=== PATIENT | male | born 1965 | race Caucasian/White ===

== ENCOUNTER → 2019-09-03 16:18 | Outpatient (CLI) | payer OTHER, SELFPAY ==
[2019-09-03 18:20] LABS: PSA,Total - Annual Screen 0.67 ng/mL (0.00-4.00)
== END ==
PROVIDERS: Family Provider Family Medicine; PCP Family Medicine; Referring Provider Preventive Medicine Occupational Medicine; Visit Provider Nurse Practitioner Adult Health
DX: Z12.5 Encounter for screening for malignant neoplasm of prostate (principal)
CPT/HCPCS: 36415; 84153; G0103

== ENCOUNTER 2019-11-01 10:13 | Emergency (ER) | payer OTHER, SELFPAY ==
[2019-11-01 10:17] VITALS: BP 178/90; PULSE 72; RESP 16; TEMP 36.5; O2SAT 99; BMI 37.4
--- NOTE | 2019-11-01 10:30 | EKG12_ITS ---
Test Reason : Blood Pressure : / mmHG Vent. Rate : 068 BPM Atrial Rate : 068 BPM P-R Int : 154 ms QRS Dur : 098 ms QT Int : 364 ms P-R-T Axes : 044 -13 067 degrees QTc Int : 387 ms Normal sinus rhythm Normal ECG Confirmed by DERICK SINGH, LORNE ([id number]), senior editor MIMI HAUSER ([id number]) on 11/05/2019 9:01:05 AM Referred By: Jeferson Herrera Confirmed By:LORNE SEPULVEDA MD
--- NOTE | 2019-11-01 10:30 | RAD_ITS ---
STUDY: X-RAY CHEST REASON FOR EXAM: Male, 53 years old. SOB, EDEMA IN LEGS TECHNIQUE: PA and lateral views of the chest. COMPARISON: None. FINDINGS: EKG electrodes are seen. Increased markings in the lingular segment of the left upper lobe. Radiographic follow-up is recommended. There is no demonstrated pleural abnormality. Sternal cerclage wires and vascular clips are present from a prior sternotomy and coronary artery bypass graft procedure (CABG). Normal mediastinum and rolando. Normal visualized pulmonary arteries. Normal visualized aortic arch and descending thoracic aorta. Normal visualized thoracic spine. Normal visualized ribs, clavicles, and shoulders. There is no demonstrated abnormality of the visualized soft tissue structures of the upper abdomen. RAD/Chest PA and Lateral IMPRESSION: Increased markings in the lingular segment of the left upper lobe. This may represent chronic changes following CABG. Follow-up is recommended. Electronically Signed: Miguel Hays, at 11:22 EST , Service support ,
--- NOTE | 2019-11-01 10:30 | ED.VIS.GEN ---
History of Present Illness Chief Complaint: Edema Informant: Patient Onset: Yesterday Current Severity: Moderate Maximum Severity: Moderate Narrative: Patient presents with swelling to the bilateral lower extremities that was noted yesterday. States swelling is slightly improved today but not completely back to baseline. states she is also noticed he seemed more winded with activity over the past 4 to 5 days. Patient does have cardiac history with multiple stents. He denies history of CHF. He denies having chest pain or any symptoms consistent with his coronary disease. Patient also has a 9 mm kidney stone is scheduled to have surgery next week. He was unsure if this may be related to retaining extra fluid. - Past Medical History (1) Coronary artery disease Status: Chronic (2) History of heart artery stent Status: Chronic (3) Kidney stone Status: Chronic Past Medical History - Allergies and Home Meds Allergies/Adverse Reactions: Allergies filgrastim [From Neupogen] Allergy (Verified 11/01/19 10:15) Other elevated heart rate Primary Care Physician: Jeferson Herrera DO [Primary Care Provider] - Doctors: Dr. Pandey, Dr. garcia Prior records reviewed: Yes Lives: Spouse/ Significant Other Smoking Status: Never smoker Review of Systems General: Denies: Chills, Fever Eyes: Denies: Visual changes - bilaterally ENT: Denies: Bilateral ear pain Cardiovascular: Denies: Chest pain Respiratory: Reports: Dyspnea. Denies: Cough, Sputum Gastrointestinal: Denies: Abdominal pain, Nausea, Vomiting, Diarrhea Musculoskeletal: Reports: Swelling. Denies: Extremity Pain Skin: Denies: Rash Neurological: Denies: Headache Endocrine: Denies: Polyuria, Polydipsia Allergy: Denies: Uticaria Physical Exam Vital Signs/Narrative: Vital Signs Temp Pulse Resp BP Pulse Ox 11/01/19 10:17 97.7 F L 72 16 178/90 H 99 Inital Vital Signs reviewed: Yes General: Well nourished, Well developed Head: Normocephalic ENT: Moist mucous membranes Neck: Supple Cardiovascular: Regular rate, Regular rhythm Respiratory: No distress, CTA bilaterally Abdomen: Soft, Nontender Extremities: Edema - 2-3+ edema bilateral lower extremities. Edema is symmetric. No calf tenderness. Skin: Normal color Neurological: Alert, Oriented x3 Psychological: Normal affect Diagnostic/Tx/Re-eval Impressions Chest X-Ray 11/01/19 10:30 IMPRESSION: Increased markings in the lingular segment of the left upper lobe. This may represent chronic changes following CABG. Follow-up is recommended. Electronically Signed: Miguel Hays, at 11:22 EST , Service support , 11/01/19 10:30 Chest PA and Lateral [RAD] Stat Laboratory Results 11/01/19 11/01/19 11/01/19 10:45 10:45 10:45 WBC 8.0 RBC 4.67 Hgb 15.3 Hct 44.6 MCV 95.5 H MCH 32.8 H MCHC 34.3 RDW Std Deviation 41.4 RDW Coeff of Paula 11.9 Plt Count 195 MPV 10.4 Immature Gran % (Auto) 0.300 Neut % (Auto) 68.9 Lymph % (Auto) 22.6 [place] % (Auto) 6.4 Eos % (Auto) 1.4 Baso % (Auto) 0.4 Absolute Neuts (auto) 5.5 Absolute Lymphs (auto) 1.80 Nucleated RBC % 0 Sodium 142 Potassium 4.2 Chloride 110 H Carbon Dioxide 28.0 Anion Gap 4 L BUN 19 H Creatinine 1.05 Estim Creat Clear Calc 79.62 Est GFR (MDRD) Af Amer 95 Est GFR (MDRD) Non-Af 79 BUN/Creatinine Ratio 18.1 Glucose 120 H Calcium 9.2 Troponin I < 0.015 B-Natriuretic Peptide 64.2 - EKG Initial EKG Interpretation: Sinus Rhythm - Sinus at 68 with no acute ischemia. - Medical Decision Making Test results discussed with patient and at bedside. This time I see no acute renal or cardiac cause for his trace edema. Andrea wrap to be applied to both legs to provide light compression. He is to follow-up on Monday for his procedure is scheduled. ED Disposition - Plan for ED Patient: Disposition: Home or Assisted Living Diagnosis: Edema Instructions: ED Peripheral Edema, Bilateral Referrals: Jeferson Herrera DO [Primary Care Provider] - 1 Week if not improving
[2019-11-01 10:56] LABS: Absolute Neutrophil Count 5.5 X10^3/uL (2.0-7.7); Basophil# 0.03 X10^3/uL; Basophil% 0.4 % (0-1); Eosinophil# 0.11 X10^3/uL; Eosinophils% 1.4 % (0-5); Hematocrit 44.6 % (40-54); Hemoglobin 15.3 g/dL (13.0-16.5); Lymphocyte % 22.6 % (19-41); Mean Corp Hgb Conc 34.3 g/dL (32-36); Mean Corpuscular Hgb 32.8 pg (27.0-32.0); Mean Corpuscular Volume 95.5 fL (80-94); Mean Platelet Vol. 10.4 fl (6.2-12.0); Monocyte# 0.51 X10^3/uL; Monocyte% 6.4 % (0-10); NRBC Flagged by Analyzer 0 % (0-5); Neutrophil # 5.51 X10^3/uL (2.7-7.7); Neutrophil % 68.9 % (47-70); Platelet Count 195 K/mm3 (150-450); RBC Distribution Width CV 11.9 % (11.6-14.6); RBC Distribution Width SD 41.4 fl (35.1-43.9); Red Blood Count 4.67 M/mm3 (4.6-6.2)
[2019-11-01 11:13] LABS: Anion Gap 4 (5-15); BUN 19 mg/dL (7-18); BUN/Creat Ratio 18.1 RATIO (10-20); Calcium,Total 9.2 mg/dL (8.5-10.1); Chloride 110 mmol/L (98-107); Creatinine, Serum 1.05 mg/dL (0.70-1.30); EST Glomerular Filtration Rate 79 mL/min (>60); Est Glom Filt Rate - Afr Amer 95 mL/min (>60); Estimated Creatinine Clearance 79.62 ml/min; Glucose 120 mg/dL (74-106); Potassium 4.2 mmol/L (3.5-5.1); Sodium Level 142 mmol/L (136-145)
[2019-11-01 11:19] LABS: BNP,B-Type NATRIURETIC PEPTIDE 64.2 pg/mL (0-100)
[2019-11-01 12:17] VITALS: BP 138/85; PULSE 72; RESP 18; O2SAT 97
[2019-11-01 12:23] VITALS: BP 138/85; PULSE 70; RESP 16; O2SAT 97
== END 2019-11-01 12:24 | disposition home or self-care (01) ==
PROVIDERS: Emergency Provider Emergency Medicine; PCP Student in an Organized Health Care Education/Training Program; Referring Provider Student in an Organized Health Care Education/Training Program
DX: R60.0 Localized edema (principal); I25.10 Atherosclerotic heart disease of native coronary artery without angina pectoris; N20.0 Calculus of kidney; Z95.5 Presence of coronary angioplasty implant and graft
CPT/HCPCS: 71046; 80048; 83880; 84484; 85025; 93005; 99284

== ENCOUNTER 2019-11-06 12:22 | Day surgery (SDC) | payer OTHER, SELFPAY ==
[2019-11-06 12:42] VITALS: BP 143/88; PULSE 77; RESP 16; TEMP 37.4; O2SAT 98; BMI 35.9
[2019-11-06] MEDS: Lactated Ringers 1,000 ML 100 ML IV ×2 (12:51→16:40)
[2019-11-06] MEDS: Cefazolin 2 GM in 0.9% Normal Saline 100 ML IV (15:27)
--- NOTE | 2019-11-06 15:36 | DCINST_ITS ---
Discharge Diet: Light diet - advance as tolerated Discharge Activity: Return to Normal Activity Call your doctor if your incision/area has: Sudden Increased Bleeding Call your doctor if you observe: Fever of 101 or Higher Suture Line Care: Avoid Pulling/Pushing, Avoid Pinching/Bending Allergies/Adverse Reactions: Allergies filgrastim [From Neupogen] Allergy (Verified 11/06/19 12:33) Other elevated heart rate Medications to take at Discharge Alirocumab [Praluent Pen] 75 mg SQ X1 11/04/19 Aspirin [Aspir-Low] 81 mg PO DAILY 11/04/19 Esomeprazole Mag Trihydrate [Nexium] 20 mg PO QHS 11/04/19 Ketorolac [Toradol] 10 mg PO Q6H 11/04/19 Lisinopril [Prinivil] 10 mg PO DAILY 11/04/19 Ondansetron [Zofran Odt] 4 mg PO Q6H PRN PRN 11/04/19 Oxycodone HCl/Acetaminophen [Oxycodone-Acetaminophen 5-325] 1 ea PO Q6H PRN PRN 11/04/19 Prasugrel HCl [Effient] 10 mg PO DAILY 11/04/19 Sildenafil Citrate 20 mg PO PRN PRN 11/04/19 Tamsulosin HCl [Flomax] 0.4 mg PO DAILY 11/04/19 Ciprofloxacin [Cipro] 500 mg PO BID #6 tab 11/06/19 Hydrocodone/Acetaminophen [[place] 10-325 Tablet] 1 each PO Q4H PRN PRN 5 Days #14 tablet 11/06/19 Phenazopyridine [Pyridium] 100 mg PO TID #20 tab 11/06/19 The following prescriptions were given: Ciprofloxacin [Cipro] 500 mg PO BID #6 tab Transmission Status: Pending to [id number] Hydrocodone/Acetaminophen [[place] 10-325 Tablet] 1 each PO Q4H PRN PRN 5 Days #14 tablet PRN Reason: Pain Score 1-10/10 Transmission Status: Sent to [id number] Phenazopyridine [Pyridium] 100 mg PO TID #20 tab Transmission Status: Pending to [id number] Primary Care Physician: Jeferson Herrera DO [Primary Care Provider] - Test Results: Test results from this visit will be discussed in further detail at your follow- up appointment, if applicable. Please Follow Up With: Chucky Pandey MD When: please call to make an appointment.
--- NOTE | 2019-11-06 15:58 | PCM.OPRPT ---
Report of Operation Date of Procedure: 11/06/19 Pre-Operative Diagnosis: Left renal calculi Post-Operative Diagnosis: Same Surgery/Procedure Performed:: Cystoscopy, balloon dilation of the left ureter, left retrograde pyelogram, interpretation fluoroscopic images, left ureteroscopy laser lithotripsy of stone and left stent placement Description of Surgical Findings:: 53-year-old male taken back to the operating room after smooth induction of general anesthesia he was placed in dorsolithotomy position went into the bladder with a 21 [place] rigid cystourethroscope the entire length of the urethra was normal the pendulous urethra was normal bulbar urethra is normal sphincter was intact verumontanum was identified he did have a high riding bladder neck but no obstructive prostate inside the bladder had normal bladder no tumors stones seen within the bladder the trigone was normal I then identified the left ureteral orifice and a wire was advanced up into the kidney over the wire I then balloon dilated the distal left ureter with a 12 [place] 10 cm balloon dilator. After performing balloon dilation then I went up the wire with the flexible ureteroscope as an 8 [place] flexible ureteroscope was able to get up in the kidney quite easily performed a retrograde pyelograms could see the contrast in the kidney and the caly[place] upper pole midpole and lower pole identified the stone in the pelvis I then used a 200 ?m laser fiber advanced through the ureteroscope and laser lithotripsy was then performed on the 9mm stone, the stone was lasered into little tiny sand pieces. I then put a wire through the ureteroscope back down the ureter and then over the wire I loaded the stent it was a 6 [place] by 26 cm stent once a stent was in position then the bladder was drained the stent was positioned properly between the kidney and bladder I then took out the cystoscope drain the bladder patient acetic was reversed plan to see him next week for cystoscopy stent removal. Type of Anesthesia:: General Drains: none - Admit VTE Documentation VTE Present on Admission: No VTE Mechan Device Prophylaxis: SCD's
[2019-11-06 16:09] VITALS: BP 120/84; BP 143/88; PULSE 88; RESP 16; TEMP 36.8; O2SAT 93
[2019-11-06 16:15] VITALS: BP 126/94; BP 143/88; PULSE 90; RESP 16; O2SAT 93
[2019-11-06 16:30] VITALS: BP 129/79; BP 143/88; PULSE 85; RESP 16; O2SAT 95
[2019-11-06 16:43] VITALS: BP 133/91; BP 143/88; PULSE 79; RESP 16; TEMP 37; O2SAT 94
[2019-11-06 17:34] VITALS: BP 143/88; BP 155/90; PULSE 87; RESP 16; O2SAT 100
== END 2019-11-06 17:44 | disposition home or self-care (01) ==
LOC: SDC 12:25 → AC 12:26
PROVIDERS: PCP Student in an Organized Health Care Education/Training Program; Referring Provider Urology; Visit Provider Urology
PROC: 0TJ98ZZ Inspection of Ureter, Via Natural or Artificial Opening Endoscopic (ICD-10-PCS; CPT 52352; principal; 2019-11-06 14:25)
DX: N20.0 Calculus of kidney (principal); N40.1 Benign prostatic hyperplasia with lower urinary tract symptoms; R35.0 Frequency of micturition; R35.1 Nocturia; R39.15 Urgency of urination; I10 Essential (primary) hypertension; I25.10 Atherosclerotic heart disease of native coronary artery without angina pectoris; I25.2 Old myocardial infarction; G47.33 Obstructive sleep apnea (adult) (pediatric); K21.9 Gastro-esophageal reflux disease without esophagitis; E78.00 Pure hypercholesterolemia, unspecified; Z87.442 Personal history of urinary calculi; Z79.82 Long term (current) use of aspirin; Z79.899 Other long term (current) drug therapy; Z95.1 Presence of aortocoronary bypass graft; Z95.5 Presence of coronary angioplasty implant and graft
CPT/HCPCS: 52356; 76000; J7120; C1769; C2617; J2405